=== PATIENT | female | born 1925 | race Caucasian/White ===

== ENCOUNTER 2017-08-30 21:15 | Observation (INO) | payer MEDICARE, OTHER ==
[2017-08-30] MEDS ORDERED: HYDROmorphone 2 MG/ML SDV IM ONE (21:34)
--- NOTE | 2017-08-30 21:40 | EDM.PDOC ---
ED HPI GENERAL MEDICAL PROBLEM - General Chief Complaint: Back Pain or Injury Stated Complaint: SEVERE PAIN Time Seen by Provider: 08/30/17 21:15 Source of Information: Reports: Patient, Family, Old Records History Limitations: Reports: No Limitations - History of Present Illness INITIAL COMMENTS - FREE TEXT/NARRATIVE: Emeka comes to [facility] ED by EMS with chronic back pain that has progressively escalated over the past week. Pain has interfered with sleep, toileting, and family reports she seems to be getting progressively weaker. There is a PMH of LS spinal stenosis, osteoporosis, and chronic opioid use over the past 2 years. Her PCP recently started her on Gabapentin to augment her Hydrocodone 15 mg q 4 hrs. Rt hip radiating to the Rt leg Pain Score (Numeric/FACES): 10 - Related Data Allergies Allergy/AdvReac Type Severity Reaction Status Date / Time No Known Allergies Allergy Verified 08/30/17 21:20 Home Meds: Home Meds Calcium Carbonate [Calcium Antacid] 300 mg PO BID 08/30/17 [History] Cholecalciferol (Vitamin D3) [Vitamin D3] 2,000 unit PO DAILY 08/30/17 [History] Ferrous Sulfate 325 mg PO DAILY 08/30/17 [History] Gabapentin [Neurontin] 200 mg PO TID 08/30/17 [History] Hydrocodone/Acetaminophen [Hydrocodon-Acetaminophen 5-325] 1 tab Q4H PRN [History] Hydrocodone/Acetaminophen [Hydrocodon-Acetaminophn 10-325] 1 tab Q4H PRN [History] Lutein/Minerals/Vit A,C & E [Ocuvite] 1 tab PO DAILY 08/30/17 [History] Multivitamin [Daily Multiple Vitamin] 1 tab PO DAILY 08/30/17 [History] Polyethylene Glycol 3350 [MiraLAX] 17 gm PO BID 08/30/17 [History] amLODIPine Besylate [Norvasc] 2.5 mg PO DAILY 08/30/17 [History] Past Medical History Cardiovascular History: Reports: Hypertension Neurological History: Reports: Other (See Below) (spinal stenosis with neurogenic claudication) ED ROS GENERAL - Review of Systems Review Of Systems: See Below Constitutional: Reports: Malaise, Weakness HEENT: Reports: No Symptoms Respiratory: Reports: No Symptoms Cardiovascular: Reports: No Symptoms Endocrine: Reports: Fatigue GI/Abdominal: Reports: No Symptoms : Reports: No Symptoms Musculoskeletal: Reports: Back Pain Skin: Reports: No Symptoms Neurological: Reports: Pre-Existing Deficit, Difficulty Walking, Weakness, Other (neurogenic claudicaton) Psychiatric: Reports: No Symptoms Hematologic/Lymphatic: Reports: No Symptoms Immunologic: Reports: No Symptoms ED EXAM,LOWER BACK PAIN/INJURY - Physical Exam Exam: See Below Exam Limited By: Physical Impairment (back pain) General Appearance: Alert, WD/WN, Anxious, Mild Distress Throat/Mouth: Normal Inspection Head: Atraumatic, Normocephalic Neck: Normal Inspection, Supple, Non-Tender, Full Range of Motion Respiratory/Chest: Lungs Clear, Normal Breath Sounds, No Accessory Muscle Use, Chest Non-Tender Cardiovascular: Normal Peripheral Pulses, Regular Rate, Rhythm, No Murmur GI/Abdominal: Normal Bowel Sounds, Soft, Non-Tender, No Organomegaly, No Distention, No Mass Rectal (Female) Exam: Deferred Back Exam: Decreased Range of Motion, Vertebral Tenderness Extremities: Normal Inspection, Normal Range of Motion Neurological: Alert, CN II-XII Intact, Normal Plantar Flexion, Oriented x 3 Psychiatric: Normal Affect, Anxious Skin Exam: Warm, Dry Lymphatic: No Adenopathy Course - Vital Signs Text/Narrative:: Following assession at the [facility] ED, Ashanti was administered Dilaudid 2 mg IM and observed over the next hour. Pain sxs initially improved to a 4-5/10, but appeared to escalate when she was moved to a wheelchair to assess tolerance. She will be admitted to Observation for pain managment and further assessment. Family is in agreement. Last Recorded V/S: Last Vital Signs Temp 36.8 C 08/30/17 21:20 Pulse 70 08/30/17 21:20 Resp 15 08/30/17 21:20 BP 152/88 H 08/30/17 21:20 Pulse Ox 100 08/30/17 21:20 - Orders/Labs/Meds Orders: Active Orders 24 hr Category Date Time Status Patient Status Manage Transfer [TRANSFER] Routine ADT 08/30/17 22:50 Ordered Meds: Medications Discontinued Medications Generic Name Dose Route Start Last Admin Trade Name Freq PRN Reason Stop Dose Admin Hydromorphone HCl 2 mg 08/30/17 21:34 08/30/17 21:40 Dilaudid IM 08/30/17 21:35 2 mg ONETIME ONE Administration Departure - Departure Time of Disposition: 22:53 Disposition: Refer to Observation Condition: Fair Clinical Impression: Degenerative lumbar spinal stenosis - Discharge Information Instructions: Spinal Stenosis, [id number], Chronic Back Pain Referrals: Hossein Vasquez MD [Primary Care Provider] - Forms: ED Department Discharge - Problem List & Annotations (1) Degenerative lumbar spinal stenosis SNOMED Code(s): 430703524 Code(s): M48.061 - SPINAL STENOSIS, LUMBAR REGION WITHOUT NEUROGENIC MANI Status: Acute Current Visit: Yes Annotation/Comment:: Admit to Observation for pain managment. - Problem List Review Problem List Initiated/Reviewed/Updated: Yes - My Orders Last 24 Hours: My Active Orders 08/30/17 22:50 Patient Status Manage Transfer [TRANSFER] Routine - Assessment/Plan Last 24 Hours: My Active Orders 08/30/17 22:50 Patient Status Manage Transfer [TRANSFER] Routine Plan: Hospitalist to see in the am.
[2017-08-30] MEDS ORDERED: HYDROmorphone 2 MG Tab PO PRN (23:10)
[2017-08-31] MEDS ORDERED: GABAPENTIN 100 MG PO SCH (09:00)
[2017-08-31] MEDS ORDERED: Non-Formulary Medication 1 Each (Cholecalciferol (Vitamin D3) [Vitamin D3] 2,000 UNIT) PO SCH (09:00)
[2017-08-31] MEDS ORDERED: Polyethylene Glycol 3350 Powder 17 GM Packet PO SCH (09:00)
[2017-08-31] MEDS ORDERED: Non-Formulary Medication 1 Each (Lutein/Minerals/Vit A,C & E [Ocuvite] 1 TAB) PO SCH (09:00)
[2017-08-31] MEDS ORDERED: Calcium Carbonate 750 MG Tab.Chew PO SCH (09:00)
--- NOTE | 2017-08-31 09:20 | PCM.HP ---
H&P History of Present Illness - General Date of Service: 08/31/17 Source of Information: Patient History Limitations: Reports: No Limitations - History of Present Illness Initial Comments - Free Text/Narative: 89-year-old female complaining chronic back pain that worsened over the last week right-sided when down to the leg moderate to severe. She's been taking hydrocodone at home ,and Neurontin with minimal improvement. There is no numbness or tingling, neither does she have any incontinence of urine or stool. She has a history of chronic opiate dependence and has been seeing Dr. Vasquez at the clinic. An MRI done last week revealed severe spinal stenosis and spondylolisthesis. Home and has had difficulty with activities of daily living because of the pain. Rt hip radiating to the Rt leg Pain Score (Numeric/FACES): 5 - Related Data Allergies/Adverse Reactions: Allergies Allergy/AdvReac Type Severity Reaction Status Date / Time No Known Allergies Allergy Verified 08/30/17 21:20 Home Medications: Home Meds Calcium Carbonate [Calcium Antacid] 300 mg PO BID 08/30/17 [History] Cholecalciferol (Vitamin D3) [Vitamin D3] 2,000 unit PO DAILY 08/30/17 [History] Ferrous Sulfate 325 mg PO DAILY 08/30/17 [History] Gabapentin [Neurontin] 200 mg PO TID 08/30/17 [History] Hydrocodone/Acetaminophen [Hydrocodon-Acetaminophen 5-325] 1 tab Q4H PRN [History] Hydrocodone/Acetaminophen [Hydrocodon-Acetaminophn 10-325] 1 tab Q4H PRN [History] Lutein/Minerals/Vit A,C & E [Ocuvite] 1 tab PO DAILY 08/30/17 [History] Multivitamin [Daily Multiple Vitamin] 1 tab PO DAILY 08/30/17 [History] Polyethylene Glycol 3350 [MiraLAX] 17 gm PO BID 08/30/17 [History] amLODIPine Besylate [Norvasc] 2.5 mg PO DAILY 08/30/17 [History] Past Medical History HEENT History: Reports: Hard of Hearing, Impaired Vision Cardiovascular History: Reports: Hypertension, Other (See Below) Other Cardiovascular History: BP controlled with medication. Gastrointestinal History: Reports: Chronic Constipation Genitourinary History: Reports: Other (See Below) Other Genitourinary History: Urinary frequency. History of UTI. 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 Neurological History: Reports: Other (See Below) (spinal stenosis with neurogenic claudication) Hematologic History: Reports: Anemia, Other (See Below) Other Hematologic History: Takes medication for anemia. - Infectious Disease History Infectious Disease History: Reports: Chicken Pox, Shingles, Other (See Below) Other Infectious Disease History: Had measles, unsure if Rubella or Rubeola. - Past Surgical History HEENT Surgical History: Reports: Cataract Surgery Cardiovascular Surgical History: Reports: Varicose GI Surgical History: Reports: Colonoscopy Social & Family History - Family History Family Medical History: Unobtainable - Tobacco Use Smoking Status *Q: Never Smoker - Caffeine Use Caffeine Use: Reports: Coffee - Recreational Drug Use Recreational Drug Use: No H&P Review of Systems - Review of Systems: Review Of Systems: ROS reveals no pertinent complaints other than HPI. Exam - Exam Exam: See Below - Vital Signs Vital Signs: Last Vital Signs Temp 98.0 F 08/31/17 08:00 Pulse 79 08/31/17 08:00 Resp 18 08/31/17 08:00 BP 122/64 08/31/17 08:00 Pulse Ox 96 08/31/17 08:00 Weight: 44.724 kg - Exam General: Alert, Oriented, 4 HEENT: PERRLA, Hearing Intact, Mucosa Moist & [place], Nares Patent, Normal Nasal Septum, Posterior Pharynx Clear, Conjunctiva Clear, EOMI, EACs Clear, TMs Clear Neck: Supple, Trachea Midline, 2 Lungs: Clear to Auscultation, Normal Respiratory Effort Cardiovascular: Regular Rate, Regular Rhythm GI/Abdominal Exam: Normal Bowel Sounds, Soft, Non-Tender, No Organomegaly, No Distention, No Abnormal Bruit, No Mass, Pelvis Stable (Female) Exam: Normal External Exam, Normal Speculum Exam, Normal Bimanual Exam Rectal (Female) Exam: Normal Exam, Normal Rectal Tone Back Exam: Muscle Spasm, Paraspinal Tenderness, Vertebral Tenderness. No: Normal Inspection Extremities: Leg Pain, Limited Range of Motion Skin: Warm, Dry, Intact Neurological: Cranial Nerves Intact, Reflexes Equal Bilateral Neuro Extensive - Mental Status: Alert, Oriented x3, Normal Mood/Affect, Normal Cognition Neuro Extensive - Motor, Sensory, Reflexes: CN II-XII Intact, Normal Gait, Normal Reflexes Psychiatric: Alert, Normal Affect, Normal Mood - Patient Data Lab Results Last 24 hrs: Laboratory Results - last 24 hr 08/30/17 08/30/17 Range/Units 23:20 23:20 WBC 7.3 (4.5-12.0) X10-3/uL RBC 3.89 (3.23-5.20) x10(6)uL Hgb 12.8 (11.5-15.5) g/dL Hct 37.4 (30.0-51.3) % MCV 96.1 H (80-96) fL MCH 33.0 (27.7-33.6) pg MCHC 34.3 (32.2-35.4) g/dL RDW 12.6 (11.5-15.5) % Plt Count 446 H (125-369) X10(3)uL MPV 6.6 L (7.4-10.4) fL Add Manual Diff Yes Neutrophils % (Manual) 89 H (46-82) % Band Neutrophils % 1 (0-6) % Lymphocytes % (Manual) 8 L (13-37) % Monocytes % (Manual) 2 L (4-12) % Hypersegmented Neuts Few Sodium 128 L (135-145) mmol/L Potassium 4.3 (3.5-5.3) mmol/L Chloride 92 L (100-110) mmol/L Carbon Dioxide 26 (23-29) mmol/L BUN 11 (8-23) mg/dL Creatinine 0.5 L (0.6-1.3) mg/dL Est Cr Clr Drug Dosing 57.56 mL/min Estimated GFR (MDRD) > 60 (>60) BUN/Creatinine Ratio 22.0 H (9-20) Glucose 136 H (80-116) mg/dL Calcium 9.1 (8.6-10.2) mg/dL Result Diagrams: 08/30/17 23:20 08/30/17 23:20 *Q Meaningful Use (ADM) - VTE *Q VTE Criteria *Q: - Stroke *Q Stroke Criteria *Q: - AMI *Q AMI Criteria *Q: - Problem List (1) Hip pain, chronic SNOMED Code(s): 69739801 ICD Code: M25.559 - PAIN IN UNSPECIFIED HIP; G89.29 - OTHER CHRONIC PAIN Status: Acute Current Visit: Yes Qualifiers: Laterality: right Qualified Code(s): M25.551 - Pain in right hip; G89.29 - Other chronic pain; G89.29 - Other chronic pain (2) Opioid dependence SNOMED Code(s): 27262335 ICD Code: F11.20 - OPIOID DEPENDENCE, UNCOMPLICATED Status: Acute Current Visit: Yes Qualifiers: Substance use status: uncomplicated Qualified Code(s): F11.20 - Opioid dependence, uncomplicated (3) Degenerative lumbar spinal stenosis SNOMED Code(s): 759763111 ICD Code: M48.061 - SPINAL STENOSIS, LUMBAR REGION WITHOUT NEUROGENIC MANI Status: Acute Current Visit: Yes Problem Details: Admit to Observation for pain managment. Problem List Initiated/Reviewed/Updated: Yes Orders Last 24hrs: Active Orders 24 hr Category Date Time Status Vital Signs [RC] 00,08,16 Care 08/30/17 23:09 Active OT Evaluation and Treatment [CONS] Routine Cons 08/30/17 23:30 Active PT Evaluation and Treatment [CONS] Routine Cons 08/30/17 23:30 Active Acetaminophen/oxyCODONE [Percocet 325-5 MG] Med 08/31/17 09:13 Ordered 1 tab PO Q4H PRN Calcium Carbonate [Tums Extra Strength] Med 08/31/17 09:00 Active 300 mg PO BID Cholecalciferol (Vitamin D3) [Vitamin D3] Med 08/31/17 09:00 Active 2,000 unit PO DAILY Cyclobenzaprine [Flexeril] Med 08/31/17 09:15 Ordered 10 mg PO DAILY Ferrous Sulfate Med 08/31/17 09:00 Active 325 mg PO DAILY Gabapentin [Neurontin] Med 08/31/17 09:15 Ordered 300 mg PO TID Lidocaine 5% [Lidoderm 5%] Med 08/31/17 09:15 Ordered 700 mg TOP Q24H Lutein/Minerals/Vit A,C & E [Ocuvite] Med 08/31/17 09:00 Active 1 tab PO DAILY Multivitamins [Tab-A-Juan] Med 08/31/17 09:00 Active 1 tab PO DAILY Naproxen [Naprosyn] Med 08/31/17 09:15 Ordered 500 mg PO Q12HR Polyethylene Glycol 3350 [MiraLAX] Med 08/31/17 09:00 Active 17 gm PO BID amLODIPine [Norvasc] Med 08/31/17 09:00 Active 2.5 mg PO DAILY Medication Orders Amlodipine Besylate (Norvasc) 2.5 mg PO DAILY [facility] Calcium Carbonate/Glycine (Tums Extra Strength) 300 mg PO BID [facility] Cyclobenzaprine HCl (Flexeril) 10 mg PO DAILY [facility] Ferrous Sulfate (Ferrous Sulfate) 325 mg PO DAILY [facility] Gabapentin (Neurontin) 300 mg PO TID [facility] Lidocaine (Lidoderm 5%) 700 mg TOP Q24H [facility] Multivitamins/Minerals/Vitamin C (Tab-A-Juan) 1 tab PO DAILY [facility] Naproxen (Naprosyn) 500 mg PO Q12HR [facility] Non-Formulary Medication (Cholecalciferol (Vitamin D3) [Vitamin D3]) 2,000 unit PO DAILY [facility] Non-Formulary Medication (Lutein/Minerals/Vit A,C & E [Ocuvite]) 1 tab PO DAILY [facility] Oxycodone/Acetaminophen (Percocet 325-5 Mg) 1 tab PO Q4H PRN PRN Reason: Breakthrough Pain Polyethylene Glycol (Miralax) 17 gm PO BID [facility] Assessment/Plan Comment:: I will discontinue Dilaudid. Instead try oxycodone. I also increased Neurontin to 300 mg 3 times a day, and along with Flexeril 1 time daily. Naproxen 500 mg. Twice a day with food.. Physical therapy will see her back to that should probably be able to go home within the next 12-24 hours to continue outpatient therapy perhaps epidural injection at the pain clinic.
[2017-08-31] MEDS: GABAPENTIN 100 MG PO SCH ×3 (09:57→21:15)
[2017-08-31] MEDS: Cyclobenzaprine 10 MG Tab PO SCH (09:57)
[2017-08-31] MEDS: Lidocaine 5% 700 MG Patch TOP SCH (09:57)
[2017-08-31] MEDS: Naproxen 500 MG Tab PO SCH ×2 (09:57→21:14)
[2017-08-31] MEDS ORDERED: LUTEIN 20 MG PO SCH (10:15)
[2017-08-31] MEDS ORDERED: CHOLECALCIFEROL 1000 UNIT PO SCH (10:30)
[2017-08-31] MEDS: FERROUS SULFATE 325 MG PO SCH (10:50)
[2017-08-31] MEDS: MULTIVITAMIN PO SCH (10:50)
[2017-08-31] MEDS: AMLODIPINE 2.5 MG PO SCH (10:50)
[2017-08-31] MEDS: CHOLECALCIFEROL 1000 UNIT PO SCH (10:51)
[2017-08-31] MEDS: Acetaminophen/oxyCODONE 325-5 MG Tab PO PRN ×2 (10:59→18:38)
[2017-09-01] MEDS: Acetaminophen/oxyCODONE 325-5 MG Tab PO PRN ×3 (00:17→09:22)
--- NOTE | 2017-09-01 08:52 | PCM.PN ---
- General Info Date of Service: 09/01/17 Subjective Update: Patient slept well, she's been able to get up and move, the pain regimen is helping. No new symptoms this morning. Her pain seems to be located in the right buttock and hip area, gets down the leg. Functional Status: Reports: Pain Controlled, Ambulating, Urinating - Patient Data Vitals - Most Recent: Last Vital Signs Temp 97.6 F 09/01/17 00:05 Pulse 70 08/31/17 16:00 Resp 18 09/01/17 00:05 BP 146/74 H 09/01/17 00:05 Pulse Ox 98 09/01/17 00:05 Weight - Most Recent: 44.724 kg Med Orders - Current: Current Medications Amlodipine Besylate (Norvasc) 2.5 mg PO DAILY [facility] Last Admin: 08/31/17 10:50 Dose: 2.5 mg Cholecalciferol (Vitamin D3) 1,000 units PO DAILY [facility] Last Admin: 08/31/17 10:51 Dose: 1,000 units Cyclobenzaprine HCl (Flexeril) 10 mg PO DAILY [facility] Last Admin: 08/31/17 09:57 Dose: 10 mg Ferrous Sulfate (Ferrous Sulfate) 325 mg PO DAILY [facility] Last Admin: 08/31/17 10:50 Dose: 325 mg Gabapentin (Neurontin) 300 mg PO TID [facility] Last Admin: 08/31/17 21:15 Dose: 300 mg Lidocaine (Lidoderm 5%) 700 mg TOP Q24H [facility] Last Admin: 08/31/17 09:57 Dose: 700 mg Miscellaneous Information (Remove Patch) 1 ea TRDERM BEDTIME [facility] Last Admin: 08/31/17 21:15 Dose: 1 ea Multivitamins/Minerals/Vitamin C (Tab-A-Juan) 1 tab PO DAILY [facility] Last Admin: 08/31/17 10:50 Dose: 1 tab Naproxen (Naprosyn) 500 mg PO Q12H [facility] Last Admin: 08/31/17 21:14 Dose: 500 mg Lutein 20mg Tab (Ptom) 1 tab PO DAILY [facility] Oxycodone/Acetaminophen (Percocet 325-5 Mg) 1 tab PO Q4H PRN PRN Reason: Breakthrough Pain Last Admin: 09/01/17 04:28 Dose: 1 tab Polyethylene Glycol (Miralax) 17 gm PO DAILY [facility] Discontinued Medications Cholecalciferol (Vitamin D3) 2,000 units PO DAILY [facility] Gabapentin (Neurontin) 200 mg PO TID [facility] Last Admin: 08/31/17 10:56 Dose: Not Given Hydromorphone HCl (Dilaudid) 2 mg IM ONETIME ONE Stop: 08/30/17 21:35 Last Admin: 08/30/17 21:40 Dose: 2 mg Hydromorphone HCl (Dilaudid) 2 mg PO Q6H PRN PRN Reason: Pain Last Admin: 08/31/17 05:03 Dose: 2 mg Non-Formulary Medication (Cholecalciferol (Vitamin D3) [Vitamin D3]) 2,000 unit PO DAILY [facility] Polyethylene Glycol (Miralax) 17 gm PO BID [facility] - Exam General: Alert, Oriented HEENT: Pupils Equal, Pupils Reactive, EOMI, Mucous Membr. Moist/Maili Back Exam: Muscle Spasm, Vertebral Tenderness Extremities: Other (Tender trochanteric bursa area) - Problem List & Annotations (1) Hip pain, chronic SNOMED Code(s): 42664638 Code(s): M25.559 - PAIN IN UNSPECIFIED HIP; G89.29 - OTHER CHRONIC PAIN Status: Acute Current Visit: Yes Qualifiers: Laterality: right Qualified Code(s): M25.551 - Pain in right hip; G89.29 - Other chronic pain; G89.29 - Other chronic pain (2) Opioid dependence SNOMED Code(s): 02057180 Code(s): F11.20 - OPIOID DEPENDENCE, UNCOMPLICATED Status: Acute Current Visit: Yes Qualifiers: Substance use status: uncomplicated Qualified Code(s): F11.20 - Opioid dependence, uncomplicated (3) Degenerative lumbar spinal stenosis SNOMED Code(s): 145987013 Code(s): M48.061 - SPINAL STENOSIS, LUMBAR REGION WITHOUT NEUROGENIC MANI Status: Acute Current Visit: Yes Annotation/Comment:: Admit to Observation for pain managment. (4) Trochanteric bursitis of right hip SNOMED Code(s): 0776445 Code(s): M70.61 - TROCHANTERIC BURSITIS, RIGHT HIP Status: Acute Current Visit: Yes - Problem List Review Problem List Initiated/Reviewed/Updated: Yes - My Orders Last 24 Hours: My Active Orders 08/31/17 09:00 Lidocaine 5% [Lidoderm 5%] 700 mg TOP Q24H Naproxen [Naprosyn] 500 mg PO Q12H 08/31/17 09:13 Acetaminophen/oxyCODONE [Percocet 325-5 MG] 1 tab PO Q4H PRN 08/31/17 09:15 Cyclobenzaprine [Flexeril] 10 mg PO DAILY Gabapentin [Neurontin] 300 mg PO TID 08/31/17 10:23 Code Status [Resuscitation Status] Routine 08/31/17 21:00 Remove Patch 1 ea TRDERM BEDTIME 09/01/17 09:00 Polyethylene Glycol 3350 [MiraLAX] 17 gm PO DAILY - Plan Plan:: I I will discharge the patient to a skilled nursing for physical outpatient therapy , rehabilitation, and pain control. She will currently going the same medication she's taking.
[2017-09-01] MEDS ORDERED: POLYETHYLENE GLYCOL 238 GM PO SCH (09:00)
[2017-09-01] MEDS: FERROUS SULFATE 325 MG PO SCH (09:17)
[2017-09-01] MEDS: Cyclobenzaprine 10 MG Tab PO SCH (09:18)
[2017-09-01] MEDS: Lidocaine 5% 700 MG Patch TOP SCH (09:19)
[2017-09-01] MEDS: Naproxen 500 MG Tab PO SCH (09:20)
[2017-09-01] MEDS: GABAPENTIN 100 MG PO SCH (09:21)
[2017-09-01] MEDS: AMLODIPINE 2.5 MG PO SCH (09:21)
[2017-09-01] MEDS: MULTIVITAMIN PO SCH (09:22)
[2017-09-01] MEDS: CHOLECALCIFEROL 1000 UNIT PO SCH (09:22)
== END 2017-09-01 11:15 ==
LOC: FB.ED 21:15 → FB.MS 23:08
PROVIDERS: ADMIT Family Medicine; ATTEND Family Medicine
DX: G89.29 Other chronic pain (principal); M25.551 Pain in right hip; M48.061 Spinal stenosis, lumbar region without neurogenic claudication; M70.61 Trochanteric bursitis, right hip; I10 Essential (primary) hypertension; K59.09 Other constipation; F11.20 Opioid dependence, uncomplicated; Z79.899 Other long term (current) drug therapy; Z98.890 Other specified postprocedural states
CPT/HCPCS: 36415; 80048; 81001; 85025; 96372; 97162; 97165; 99283; A9270; G0378; J1170; 99217; 99219; 99284